=== PATIENT | male | born 1980 | race Caucasian/White ===

== ENCOUNTER 2023-06-06 22:14 | Emergency (ER) | payer MEDICAID ==
[~2023-06-06] VITALS: Ht 170.2 cm; Wt 104.3 kg
[2023-06-06 22:21] VITALS: BP_SYST 140; PULSE 84; RESP 18; TEMP 98.4; O2SAT 98
--- NOTE | 2023-06-06 23:58 | NUR ---
PATIENT INFORMED REGISTRATION HE WAS LEAVING. PATIENT LEFT WITHOUT BEING SEEN
== END 2023-06-06 23:58 | disposition left against medical advice (07) ==
LOC: SED 22:14
DX: T78.40XA Allergy, unspecified, initial encounter (principal); Z53.21 Procedure and treatment not carried out due to patient leaving prior to being seen by health care provider; X58.XXXA Exposure to other specified factors, initial encounter
CPT/HCPCS: 99281